=== PATIENT | female | born 1945 | race Two or more races ===

== ENCOUNTER 2019-01-03 11:12 | Outpatient (CLI) | payer OTHER ==
[~2019-01-03 11:12] MED LIST: MICARDIS20 MG; SYNTHROID88 MCG
== END 2019-01-03 11:20 | disposition home or self-care (01) ==
LOC: LAB 11:12
DX: C50.212 Malignant neoplasm of upper-inner quadrant of left female breast (principal); I10 Essential (primary) hypertension; E03.8 Other specified hypothyroidism; B18.2 Chronic viral hepatitis C; D50.8 Other iron deficiency anemias; D51.8 Other vitamin B12 deficiency anemias; D51.1 Vitamin B12 deficiency anemia due to selective vitamin B12 malabsorption with proteinuria; D51.0 Vitamin B12 deficiency anemia due to intrinsic factor deficiency; B18.8 Other chronic viral hepatitis; R97.0 Elevated carcinoembryonic antigen [CEA]; R97.8 Other abnormal tumor markers

== ENCOUNTER 2019-01-03 13:12 | Outpatient (CLI) | payer OTHER | END 2019-01-03 17:00 | disposition home or self-care (01) | LOC: MAMO-SONO 13:12 | DX: Z12.31 Encounter for screening mammogram for malignant neoplasm of breast (principal); Z87.898 Personal history of other specified conditions; C50.212 Malignant neoplasm of upper-inner quadrant of left female breast; I10 Essential (primary) hypertension; E03.8 Other specified hypothyroidism; B18.2 Chronic viral hepatitis C ==

== ENCOUNTER → 2019-07-05 | Outpatient (CLI) | payer OTHER | END | disposition home or self-care (01) | LOC: LAB 10:34 | DX: C50.212 Malignant neoplasm of upper-inner quadrant of left female breast (principal); I10 Essential (primary) hypertension; E03.8 Other specified hypothyroidism; B18.2 Chronic viral hepatitis C; D50.8 Other iron deficiency anemias; D51.8 Other vitamin B12 deficiency anemias; R97.0 Elevated carcinoembryonic antigen [CEA]; R97.8 Other abnormal tumor markers; D55.0 Anemia due to glucose-6-phosphate dehydrogenase [G6PD] deficiency ==

== ENCOUNTER → 2019-07-07 | Outpatient (CLI) | payer OTHER | END | disposition home or self-care (01) | LOC: SONOGRAMA 11:28 | DX: C50.212 Malignant neoplasm of upper-inner quadrant of left female breast (principal); I10 Essential (primary) hypertension; E03.8 Other specified hypothyroidism; B18.2 Chronic viral hepatitis C ==

== ENCOUNTER 2019-10-30 10:34 | Outpatient (CLI) | payer OTHER | END 2019-10-30 10:43 | disposition home or self-care (01) | LOC: LAB 10:34 | DX: D64.89 Other specified anemias (principal); I10 Essential (primary) hypertension; D50.8 Other iron deficiency anemias; N39.0 Urinary tract infection, site not specified; B96.29 Other Escherichia coli [E. coli] as the cause of diseases classified elsewhere ==

== ENCOUNTER 2019-11-15 10:40 | Outpatient (CLI) | payer OTHER | END 2019-11-15 15:00 | disposition home or self-care (01) | LOC: LAB 10:40 | DX: N39.0 Urinary tract infection, site not specified (principal) ==

== ENCOUNTER 2020-10-30 10:29 | Outpatient (CLI) | payer OTHER | END 2020-10-30 10:38 | disposition home or self-care (01) | LOC: LAB 10:29 | PROVIDERS: ATTEND Internal Medicine Hematology & Oncology | DX: D50.8 Other iron deficiency anemias (principal); I10 Essential (primary) hypertension; D51.8 Other vitamin B12 deficiency anemias; E03.8 Other specified hypothyroidism; C50.919 Malignant neoplasm of unspecified site of unspecified female breast; R97.8 Other abnormal tumor markers; R97.0 Elevated carcinoembryonic antigen [CEA]; C50.212 Malignant neoplasm of upper-inner quadrant of left female breast; B18.2 Chronic viral hepatitis C ==

== ENCOUNTER 2020-11-08 08:31 | Outpatient (CLI) | payer OTHER | END 2020-11-08 14:40 | disposition home or self-care (01) | LOC: SONOGRAMA 08:31 | PROVIDERS: ATTEND Internal Medicine Hematology & Oncology | DX: Q61.01 Congenital single renal cyst (principal); I70.0 Atherosclerosis of aorta; I10 Essential (primary) hypertension; E03.8 Other specified hypothyroidism; B18.2 Chronic viral hepatitis C; C50.212 Malignant neoplasm of upper-inner quadrant of left female breast ==

== ENCOUNTER 2021-03-04 13:40 | Outpatient (CLI) | payer OTHER | END 2021-03-04 13:48 | disposition home or self-care (01) | LOC: MAMO-SONO 13:40 | PROVIDERS: ATTEND Internal Medicine Hematology & Oncology | DX: Z12.31 Encounter for screening mammogram for malignant neoplasm of breast (principal); Z87.898 Personal history of other specified conditions; C50.212 Malignant neoplasm of upper-inner quadrant of left female breast ==

== ENCOUNTER 2021-03-20 13:24 | Outpatient (CLI) | payer OTHER | END 2021-03-20 13:28 | disposition home or self-care (01) | LOC: NUCLEAR 13:24 | PROVIDERS: ATTEND Internal Medicine Hematology & Oncology | DX: M81.0 Age-related osteoporosis without current pathological fracture (principal) ==

== ENCOUNTER 2021-08-29 11:49 | Outpatient (CLI) | payer OTHER | END 2021-08-29 12:05 | disposition home or self-care (01) | LOC: RAD 11:49 | PROVIDERS: ATTEND Ophthalmology | DX: I10 Essential (primary) hypertension (principal); M25.561 Pain in right knee; M25.562 Pain in left knee; I15.8 Other secondary hypertension; M81.0 Age-related osteoporosis without current pathological fracture; E03.8 Other specified hypothyroidism; Z68.29 Body mass index [BMI] 29.0-29.9, adult; C50.919 Malignant neoplasm of unspecified site of unspecified female breast; E55.9 Vitamin D deficiency, unspecified; Z13.820 Encounter for screening for osteoporosis ==

== ENCOUNTER 2023-03-22 13:22 | Outpatient (CLI) | payer OTHER | END 2023-03-22 13:45 | disposition home or self-care (01) | LOC: MAMO-SONO 13:22 | PROVIDERS: ATTEND Internal Medicine Hematology & Oncology | DX: Z12.31 Encounter for screening mammogram for malignant neoplasm of breast (principal); N63.0 Unspecified lump in unspecified breast; N64.4 Mastodynia; C50.212 Malignant neoplasm of upper-inner quadrant of left female breast ==

== ENCOUNTER 2024-06-01 07:58 | Outpatient (CLI) | payer OTHER | END 2024-06-01 08:05 | disposition home or self-care (01) | LOC: MAMO-SONO 07:58 | PROVIDERS: ATTEND Internal Medicine Hematology & Oncology | DX: C50.212 Malignant neoplasm of upper-inner quadrant of left female breast (principal); I10 Essential (primary) hypertension; E03.8 Other specified hypothyroidism; B18.2 Chronic viral hepatitis C; D63.1 Anemia in chronic kidney disease; N18.30 Chronic kidney disease, stage 3 unspecified; N63.0 Unspecified lump in unspecified breast; N64.4 Mastodynia; Z12.31 Encounter for screening mammogram for malignant neoplasm of breast ==

== ENCOUNTER 2024-06-01 09:58 | Outpatient (CLI) | payer OTHER | END 2024-06-01 09:59 | disposition home or self-care (01) | LOC: NUCLEAR 09:58 | DX: M81.0 Age-related osteoporosis without current pathological fracture (principal) ==

== ENCOUNTER 2024-12-02 10:55 | Emergency (ER) | payer OTHER ==
[~2024-12-02] VITALS: Ht 160 cm; Wt 69.9 kg
[2024-12-02] MEDS ORDERED: LOSARTAN POTASS50 MG PO (11:45)
[2024-12-02] MEDS ORDERED: FAMOTIDINE/PF 20 MG/2 ML VIAL IV ONE (13:00)
[2024-12-02] MEDS ORDERED: ENALAPRILAT DIHYDRATE 1.25 MG/ML VIAL IV ONE ×2 (13:00→13:03)
[2024-12-02] MEDS ORDERED: FAMOTIDINE/PF 20 MG/2 ML VIAL ONE (13:03)
[2024-12-02] MEDS ORDERED: ONDANSETRON HCL 2 MG/ML VIAL IV ONE (13:30)
[2024-12-02 13:46] LABS: HEMATOCRIT 34.8 % (36.0-45.00); HEMOGLOBIN 11.4 g/dL (12.0-15.00); MEAN CELL VOLUME 84.6 fL (80.00-100.00); MEAN CORPUSCULAR HEMOGLOBIN 27.7 pg (27.00-32.0); MEAN CORPUSCULAR HGB CONC 32.7 g/dl (32.0-36.0); PLATELET COUNT 133 K/uL (150-450); RED BLOOD COUNT 4.12 M/uL (4.00-6.00)
[2024-12-02 14:18] LABS: CALCIUM 10.2 mg/dL (8.5-10.1); CREATININE SERUM 1.15 mg/dL (0.55-1.02); GFR 45.29; POTASSIUM 3.71 mEq/L (3.5-5.1)
[2024-12-02 14:23] LABS: PH,URINE 5.5 (5.0-8.0); URINE APPEARANCE Clear; URINE BILIRRUBIN Negative (NEGATIVE); URINE BLOOD Negative; URINE COLOR Yellow; URINE GLUCOSE Negative (NEGATIVE); URINE KETONE Negative (NEGATIVE); URINE LEUKOCYTE Negative; URINE NITRATE Negative; URINE PROTEIN Negative (NEGATIVE); URINE UROBILINOGEN 0.2 E.U./dl
[2024-12-02 14:26] LABS: URINE BACTERIA 3519.8 uL (0.0-1933); URINE EPITHELIAL CELLS 1.7 uL (0.0-38.8); URINE RBC 3.6 uL (0.0-20.8)
[2024-12-02 14:29] LABS: URINE WBC 0.9 uL (0.0-23.2)
[2024-12-02] MEDS ORDERED: SODIUM CHLORIDE 0.45 % 1,000 ML IV SCH (14:30)
== END 2024-12-02 17:39 ==
LOC: ER 10:57
PROVIDERS: General Practice
DX: I10 Essential (primary) hypertension (principal); D69.6 Thrombocytopenia, unspecified; D64.9 Anemia, unspecified; E03.9 Hypothyroidism, unspecified; Z85.3 Personal history of malignant neoplasm of breast; Z20.822 Contact with and (suspected) exposure to COVID-19
CPT/HCPCS: 36415; 93005; 96365; 99283; J2405; J3490

== ENCOUNTER 2025-06-05 09:52 | Outpatient (CLI) | payer OTHER ==
[~2025-06-05 09:52] MED LIST changes: +LOSARTAN POTASS50 MG PO
== END 2025-06-05 09:54 | disposition home or self-care (01) ==
LOC: RAD 09:52
PROVIDERS: ATTEND Internal Medicine Hematology & Oncology
DX: C50.212 Malignant neoplasm of upper-inner quadrant of left female breast (principal); B18.2 Chronic viral hepatitis C; I10 Essential (primary) hypertension; E03.8 Other specified hypothyroidism; D63.1 Anemia in chronic kidney disease; N18.30 Chronic kidney disease, stage 3 unspecified; N64.4 Mastodynia; N63.0 Unspecified lump in unspecified breast; Z12.31 Encounter for screening mammogram for malignant neoplasm of breast

== ENCOUNTER 2025-06-07 09:43 | Outpatient (CLI) | payer OTHER | END 2025-06-07 09:49 | disposition home or self-care (01) | LOC: RAD 09:43 | PROVIDERS: ATTEND Internal Medicine Hematology & Oncology | DX: C50.212 Malignant neoplasm of upper-inner quadrant of left female breast (principal); B18.2 Chronic viral hepatitis C; I10 Essential (primary) hypertension; E03.8 Other specified hypothyroidism; D63.1 Anemia in chronic kidney disease; N18.30 Chronic kidney disease, stage 3 unspecified; Z96.651 Presence of right artificial knee joint; Z96.652 Presence of left artificial knee joint ==